=== PATIENT | female | born 1950 | race Caucasian/White ===

== ENCOUNTER → 2020-07-12 | Day surgery (SDC) | payer MEDICARE, OTHER ==
[~2020-07-12] VITALS: Ht 152.4 cm; Wt 104.3 kg
[~2020-07-12] MED LIST: CENTRUM ADULTS1 EACH PO; MIRAPEX0.25 MG PO; PERCOCET 5-3251 EACH PO; VITAMIN D310 MCG PO; ZOFRAN4 M1 PO; ZYRTEC10 M3 PO
[2020-07-12 09:54] LABS: HGB 14.4 g/dl (12.5-16.0); MCH 32.5 pg (25.0-31.0); MCHC 33.5 g/dL (32.0-36.0); MCV 97.1 fL (78.0-100.0); MPV 9.8 fL (6.0-9.5); RBC 4.43 M/uL (4.20-5.40); RDW 12.2 % (11.5-14.0); WBC 5.7 K/uL (4.0-10.5)
[2020-07-12 10:09] LABS: INR 1.02 (0.9-1.2); PROTHROMBIN TIME 12.7 SECONDS (11.4-13.6); PTT 30.1 SECONDS (22.2-34.7)
[2020-07-12 10:14] LABS: ALBUMIN 3.4 g/dL (3.4-5.0); BILIRUBIN - TOTAL 0.4 mg/dL (0.2-1.0); BUN/CREAT RATIO (CALC) 20.3 RATIO; CREATININE 0.69 mg/dL (0.51-0.95); GLOBULIN (CALCULATION) 3.5 g/dL; POTASSIUM 4.2 mmol/L (3.5-5.1); TOTAL PROTEIN 6.9 g/dL (6.4-8.2)
== END | disposition home or self-care (01) ==
LOC: FAS 08:06
PROVIDERS: Orthopaedic Surgery
DX: M75.122 Complete rotator cuff tear or rupture of left shoulder, not specified as traumatic (principal); M75.52 Bursitis of left shoulder; M19.012 Primary osteoarthritis, left shoulder; M25.812 Other specified joint disorders, left shoulder; S46.212A Strain of muscle, fascia and tendon of other parts of biceps, left arm, initial encounter; X58.XXXA Exposure to other specified factors, initial encounter; E80.1 Porphyria cutanea tarda; Z20.822 Contact with and (suspected) exposure to COVID-19; Z98.51 Tubal ligation status; Z90.710 Acquired absence of both cervix and uterus
CPT/HCPCS: 36415; 71045; 80053; 85610; 85730; C1713; J0171; J0690; J0735; J1100; J2250; J2405; J2710; J2795; J3010; J7120